=== PATIENT | male | born 1995 | race Caucasian/White ===

== ENCOUNTER 2019-02-26 00:40 | Emergency (ER) | payer OTHER ==
--- NOTE | 2019-02-26 01:00 | ED Physician Documentation ---
PD HPI UPPER EXT INJURY - Stated complaint Stated Complaint: FINGER LAC - Chief complaint Chief Complaint: Laceration - History obtained from History obtained from: Patient - History of Present Illness Location: Left, Finger Type of injury: Laceration Where injury occurred: Home Timing - onset: How many hours ago (1-2) Worsened by: Moving, Palpating Associated symptoms: No: Weakness, Numbness, Tingling, Swelling, Discolored Contributing factors: No: Anticoagulated, Prior ortho surgery, Prosthetic joint, Work related Similar symptoms before: Has not had sx before Recently seen: Not recently seen - Additonal information Additional information: was trying to use a knife to open a wine bottle but the bottle ended up breaking, causing a laceration to his left fourth digit. he does not feel there is glass or other FB in the wound. his chief concern was the persistence of bleeding. he is right-hand dominant. Review of Systems Skin: reports: Laceration (s) Neurologic: denies: Focal weakness, Numbness PD PAST MEDICAL HISTORY - Past Medical History Past Medical History: No Cardiovascular: None Respiratory: None Neuro: None Endocrine/Autoimmune: None GI: None : None HEENT: None Psych: None Musculoskeletal: None Derm: None - Past Surgical History Past Surgical History: Yes General: Appendectomy HEENT: Tonsil/Adenoidectomy - Allergies Allergies/Adverse Reactions: Allergies Allergy/AdvReac Type Severity Reaction Status Date / Time No Known Drug Allergies Allergy Verified 02/26/19 00:48 - Social History Does the pt smoke?: No Smoking Status: Never smoker Does the pt drink ETOH?: Yes Does the pt have substance abuse?: No - Immunizations Immunizations are current?: Yes - POLST Patient has POLST: No PD ED PE NORMAL - Vitals Vital signs reviewed: Yes - General General: Alert and oriented X 3, No acute distress, Well developed/nourished - Extremities Extremities: No tenderness to palpate, Normal ROM s pain, Other (Fourth and third digits: full range and strength of extension, as well as flexion with isolation of the pip, dip, and map joints. LTS intact at tips) PD ED PE EXPANDED - Extremities RASHID UE/Hands Visual: 1 - laceration (OJust deep to epidermis (dermal layer exposed). No FB. Repaired with Dermabond and steristrips) Results - Vitals Vitals: Oxygen O2 Source Room air Procedures - Laceration (location) Finger left Ventral Length in cm: 1 Wound type: Linear, Superficial Neurovascular status: Sensory intact, Motor intact, Vascular intact Tendon involvement: Tendon intact Wound Preparation: Chlorhexadine, Irrigated copiously NS, Wound explored, To the base. No: FB identified Skin layer closure: Dermabond, Steri strips Other: Patient tolerated well, No complications, Neurovascular intact, Tetanus UTD Complexity: Simple PD MEDICAL DECISION MAKING - ED course Complexity details: considered differential, d/w patient Departure - Departure Disposition: 01 Home, Self Care Clinical Impression: Finger laceration Condition: Good Instructions: ED Laceration Ext Skin Glue Follow-Up: SHONNA YATES MD [Primary Care Provider] - Within 1 week Discharge Date/Time: 02/26/19 02:01
[2019-02-26 01:02] VITALS: BP 147/95
== END 2019-02-26 02:01 | disposition home or self-care (01) ==
LOC: ED 00:40
DX: S61.215A Laceration without foreign body of left ring finger without damage to nail, initial encounter (principal); W26.0XXA Contact with knife, initial encounter; Y92.009 Unspecified place in unspecified non-institutional (private) residence as the place of occurrence of the external cause
CPT/HCPCS: 12001; 99282; 99283